=== PATIENT | female | born 1945 | race Caucasian/White ===

== ENCOUNTER 2023-11-22 06:46 | Day surgery (SDC) | payer MEDICARE ==
[2023-11-17 11:35] LABS: BASOPHILS % (AUTO) 0.3 % (0-1); EOSINOPHILS % (AUTO) 0.6 % (0-6); LYMPHOCYTES % (AUTO) 14.5 % (21-51); MEAN CORPUSCULAR HEMOGLOBIN 26.1 PG (27.0-31.0); MEAN CORPUSCULAR HGB CONC 32.5 g/dL (33.0-36.5); MEAN CORPUSCULAR VOLUME 80.2 FL (78-98); MEAN PLATELET VOLUME 8.9 FL (7.4-10.4); MONOCYTES # (AUTO) 0.5 X10'3 (0-0.9); MONOCYTES % (AUTO) 7.7 % (2-12); NEUTROPHILS # (AUTO) 5.4 X10'3 (1.8-7.7); NEUTROPHILS % (AUTO) 76.9 % (42-75); PRE OP HEMATOCRIT 30.7 % (35.0-45.0); PRE OP PLATELET COUNT 388 X10'3 (140-440); RED BLOOD COUNT 3.82 X10'6 (4.20-5.60); RED CELL DISTRIBUTION WIDTH 16.4 % (11.5-14.5)
[2023-11-17 11:41] LABS: ALBUMIN 3.4 G/DL (3.4-5.0); ALBUMIN/GLOBULIN RATIO 0.8 (1.1-1.5); ALKALINE PHOSPHATASE 128 IU/L (46-116); BLOOD UREA NITROGEN 19 MG/DL (7-18); CALCIUM 8.5 MG/DL (8.5-10.1); CHLORIDE 101 MMOL/L (99-107); CREATININE 0.95 MG/DL (0.40-0.90); PRE OP ALT 34 U/L (30-65); PRE OP ANION GAP 9 (8-16); PRE OP AST 22 U/L (10-37); PRE OP BILIRUB, TOTAL 0.2 MG/DL (0.0-1.0); PRE OP GLUCOSE 111 MG/DL (70-104); PRE OP POTASSIUM 4.1 MMOL/L (3.4-5.1); PRE OP SODIUM 134 MMOL/L (135-145); TOTAL CARBON DIOXIDE 24.4 MMOL/L (24-32); TOTAL PROTEIN 7.5 G/DL (6.4-8.2); eGFR 57 ML/MIN
[~2023-11-22] VITALS: Ht 167.6 cm; Wt 61.9 kg
[2023-11-22] VITALS (7 sets, daily range): BP systolic 107–142; BP diastolic 57–73; PULSE 61–74; RESP 14–16; TEMP 98.4; O2SAT 95–99
[2023-11-22] MEDS: cefazolin 2gm/D5W 100mL 100 ML IV ONE (05:30)
[~2023-11-22 06:46] MED LIST: ASPI81TA52 PO; FOLI1TAB27 PO; LISI1TAB51 PO; OSC500T PO; ROSU5TAB12 PO; URSO300C2 PO; URSO500T10 PO
[2023-11-22] MEDS ORDERED: BUPIVAcaine/PF 2.5mg/ml (0.25%) 10ml vial ONE (07:26)
[2023-11-22] MEDS ORDERED: fentaNYL/PF 50MCG/1 ML 2ML syringe IV PRN ×2 (08:25)
[2023-11-22] MEDS ORDERED: ringers solution, lacted 1,000 ML IV SCH (08:25)
[2023-11-22] MEDS ORDERED: meperidine/PF 25mg/ml syringe IV PRN (08:25)
[2023-11-22] MEDS ORDERED: hydrALAZINE 20mg/ml inj. IV PRN (08:25)
[2023-11-22] MEDS ORDERED: ondansetron/PF 4mg/2ml inj IV PRN (08:25)
[2023-11-22] MEDS ORDERED: acetaminophen 1,000mg/100ml IV 100 ML IV ONE (08:25)
[2023-11-22] MEDS ORDERED: labetalol 20mg/4ml (5mg/ml) syringe IV PRN (08:25)
[2023-11-22] MEDS ORDERED: proCHLORperazine 10 MG/2 ml inj IV PRN (08:25)
[2023-11-22] MEDS: famotidine 20mg tablet PO ONE (08:37)
[2023-11-22] MEDS: ringers solution, lacted 1,000 ML IV SCH (08:38)
[2023-11-22] MEDS ORDERED: fentaNYL/PF 50MCG/1 ML 2ML syringe ONE (09:53)
[2023-11-22] MEDS ORDERED: LIDOcaine 2% (20mg/ml) 5ml vial ONE ×2 (09:59)
[2023-11-22] MEDS ORDERED: midazolam 1 mg/ML 2ml injection ONE (10:04)
[2023-11-22] MEDS ORDERED: propofol inj 20 ML IV ONE (10:05)
[2023-11-22] MEDS: BUPIVAcaine/PF 5 MG/ML 10ML VIAL IJ ONE (10:12)
== END 2023-11-22 11:20 | disposition home or self-care (01) ==
LOC: PAS 06:46
PROVIDERS: ATTEND Orthopaedic Surgery Hand Surgery
DX: D21.11 Benign neoplasm of connective and other soft tissue of right upper limb, including shoulder (principal); I10 Essential (primary) hypertension; E78.5 Hyperlipidemia, unspecified; I20.9 Angina pectoris, unspecified; I25.2 Old myocardial infarction; Z87.891 Personal history of nicotine dependence; Z79.82 Long term (current) use of aspirin; Z79.899 Other long term (current) drug therapy; Z98.890 Other specified postprocedural states
CPT/HCPCS: 26116; 36415; 80053; 82948; 85025; 93005; J0665; J0690; J2250; J2704; J3010; J3490; J7030; J7120; Z7506; Z7512; A4215; A4618; A6449; A7000

== ENCOUNTER 2025-06-21 10:10 | Emergency (ER) | payer MEDICARE ==
[~2025-06-21] VITALS: Ht 165.1 cm; Wt 58.9 kg
[~2025-06-21 10:10] MED LIST changes: -ROSU5TAB12 PO; +ROSU5TAB51 PO; -URSO500T10 PO; +URSO500T7 PO
[2025-06-21 10:21] VITALS: BP 128/70; PULSE 124; RESP 14; O2SAT 96
--- NOTE | 2025-06-21 10:53 | RADIOLOGY REPORT ---
PROCEDURE: RIGHT WRIST, COMPLETE (3VW MIN) 06/21/2025 10:33 AM TECHNIQUE: RIGHT WRIST, COMPLETE (3VW MIN) INDICATION: R ARM PAIN. COMPARISON: None available. FINDINGS: No acute fracture or dislocation. Mild arthritis of the triscaphe joint. [id number] arthritis of the first carpometacarpal joint. Osseous structures are demineralized. Soft tissues unremarkable. IMPRESSION: No acute osseous abnormality.
--- NOTE | 2025-06-21 10:56 | RADIOLOGY REPORT ---
EXAM: DI SHOULDER, COMPLETE (MIN 2 VWS) HISTORY: R ARM PAIN COMPARISON: None available TECHNIQUE:: 3 views of the right shoulder FINDINGS: No acute fracture or dislocation. No suspicious lytic or osseous lesion is identified. Mild arthritis of the acromioclavicular joint. Mild arthritis of the glenohumeral joint. Markedly narrowed acromiohumeral interval, which is suggestive of chronic rotator cuff pathology. No calcifications about the humeral head to suggest rotator cuff calcific tendinopathy. The overlying soft tissues are unremarkable. IMPRESSION: 1. No acute fracture or dislocation. 2. Chronic degenerative changes as described.
--- NOTE | 2025-06-21 12:03 | Physician Documentation ---
History of Present Illness ~ Chief Complaint: Wrist pain Stated Complaint: ARM PAIN Time Seen by MD: 10:31 Primary Medical Doctor: Laura sylvester NP HPI Patient is a very pleasant 79-year-old female that presents to the emergency department for evaluation of wrist and shoulder pain sustained approximately 1 month ago after a fall in a new environment. Patient reports he was not dizzy she was not lightheaded and was a mechanical ground level fall due to being on familiar with the inside of the home she was visiting. Patient reports since that time she has had tenderness and pain in her shoulder and her right wrist specifically. Patient reports he had carpal tunnel approximately 20 years ago and used to wear braces on that side. Patient reports her wrist is very swollen she does have good range of motion but it is tender to move the wrist. Patient denies fever chills nausea vomiting diarrhea at this time. Tetanus within 5 years: No Medication Reconciliation Allergies: Coded Allergies: No Known Allergies (Unverified , 06/21/25) Scheduled Aspirin (Aspirin EC), 1 TAB PO DAILY, (Reported) Calcium Carbonate* (Oscal*), 1 TAB PO BID, (Reported) Folic Acid* (Folic Acid*), 1 TAB PO QPM, (Reported) Lisinopril/Hydrochlorothiazide (Lisinopril-Hctz 20-12.5 mg Tab), 1 TAB PO QPM, (Reported) Rosuvastatin Calcium (Rosuvastatin Calcium), 1 TAB PO QPM, (Reported) Ursodiol (Ursodiol), 1 TAB PO QAM, (Reported) Ursodiol (Ursodiol), 1 CAP PO QPM, (Reported) Review of Systems ROS As stated above in the HPI, otherwise all systems are reviewed and negative. Physical Exam Vital Signs: Temperature: 97.9, Source: Oral, Heart Rate: 124, Respiratory Rate: 14, BP: 128/70, Pulse Oximetry: 96, Weight: 58.900 Oxygen Flow Rate: 0 Physical Exam VITALS: Reviewed and as above. GENERAL: Alert, no apparent distress. MUSCULOSKELETAL No deformities, edema noted to the right wrist tenderness with range of motion during examination, mild tenderness to the right shoulder with range of motion noted during examination. SKIN: Warm and dry, no rash NEURO: Oriented x4, No motor or sensory deficit PSYCH: Normal mood and affect, no agitation Progress Results/Orders Results/Orders Orders - MIQUEL MANUEL REIMBURSEMENT LIAISON Wrist, Complete (3vw Min) (06/21/25 ) Shoulder, Complete (Min 2 Vws) (06/21/25 ) Completed Orders - MIQUEL MANUEL [facility]IMBURSEMENT LIAISON Wrist, Complete (3vw Min) (06/21/25 ) Shoulder, Complete (Min 2 Vws) (06/21/25 ) Vital Signs 06/21/25 10:21 Temp 97.9 Pulse 124 Resp 14 B/P (MAP) 128/70 Pulse Ox 96 O2 Flow Rate 0 Medical Decision Making Additional information obtaine: other Findings MEDICAL DECISION MAKING - DISCHARGE Chief Complaint: Right wrist and shoulder pain following ground-level fall approximately one month ago. History of Present Illness: This 79-year-old female presents to the emergency department with persistent right wrist and shoulder pain sustained after a mechanical ground-level fall in an unfamiliar environment approximately one month ago. The patient denies any dizziness, lightheadedness, or syncope preceding the fall. Since the incident, she has experienced ongoing tenderness and pain in the affected shoulder and right wrist. The patient has a history of carpal tunnel syndrome from approximately 20 years ago, previously managed with wrist bracing on the affected side. She denies fever, chills, nausea, vomiting, or diarrhea. Physical Examination: The right wrist demonstrates significant swelling with tenderness to palpation and movement. Range of motion is preserved but painful. Shoulder examination reveals tenderness without obvious deformity. Diagnostic Studies: Radiographic imaging of the right shoulder and right wrist obtained in the emergency department shows no evidence of acute fracture, dislocation, or other bony abnormality. According to the [employer] Appropriateness Criteria, radiography is the appropriate initial imaging study for evaluation of chronic hand and wrist pain. The negative radiog raphs in the setting of chronic pain (greater than one month duration) and examination findings consistent with nonspecific arthritis support a clinical diagnosis without need for advanced imaging at this time. 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 Several factors support this diagnosis: Mechanism and Timeline: Ground-level fall with subsequent chronic pain persisting beyond one month meets the [employer] the [employer] of Pain definition of chronic pain (pain persisting or recurring for 3 months or longer). The mechanical nature of the fall without loss of consciousness reduces concern for other systemic etiologies. [1] Imaging Findings: Negative radiographs effectively exclude acute fracture, which is the primary concern in acute traumatic shoulder and wrist injuries. In the setting of chronic wrist pain with normal or nonspecific radiographic findings, the clinical diagnosis of arthritis is appropriate. [1-3] Patient Risk Factors: At 79 years of age, the patient is at increased risk for osteoarthritis. Her history of carpal tunnel syndrome suggests pre-existing degenerative changes in the wrist that may predispose to post-traumatic arthritis exacerbation. Physical Examination: Preserved range of motion with pain and swelling is consistent with inflammatory arthritis rather than complete structural disruption. The absence of systemic symptoms (fever, chills) makes infectious or systemic inflammatory processes less likely. Differential Considerations: While occult fracture was considered given the traumatic mechanism, the negative radiographs at one month post-injury make this unlikely. Radiographs can miss up to 30% of scaphoid fractures acutely, but at one month post-injury, fractures are typically visible on plain films. [4] Advanced imaging with MRI would be considered if there were concern for occult fracture, ligament injury, or rotator cuff pathology, but the clinical presentation and timeline favor arthritis exacerbation over these diagnoses. [2][5] Plan: The patient will be discharged with conservative management appropriate for arthritis exacerbation: Immobilization: Wrist splint in neutral position for symptom relief and support [6] Analgesia: Acetaminophen as first-line analgesic given the patient's age, with maximum daily dose of 2,000 mg given she is over 80 years old [7-8] Activity Modification: Relative rest with gradual return to activities as tolerated Follow-up: Outpatient follow-up in 1-2 weeks to reassess symptoms and functional status The patient was counseled on warning signs requiring return to the emergency department, including development of fever, worsening swelling, numbness or weakness, or inability to bear weight. She verbalized understanding of the discharge plan and agreed with conservative management. Complexity of Medical Decision Making: Moderate complexity given multiple diagnostic considerations in an elderly patient with chronic symptoms following trauma, requiring interpretation of imaging studies and consideration of age-appropriate treatment modifications. General Diff Dx:Considerations: Include: Abrasion, Contusion, Fracture, H ematoma, Laceration, Malunion, Neurovascular injury, Open fracture, Sprain, Ulcer, Other Shoulder Diff Dx:Consideration: Include: AC separation, Adhesive capsulitis, Arthritis, Bicipital tendonitis, Calcific tendonitis, Cervical disc disease, Contusion, Dislocation, Fracture-humerus, Fracture-scapula, Fracture-clavicle, GB disease, Hematoma, Impingement syndrome, Myocardial infarction, Neurovascular injury, Open fracture-humerus, Open fracture-scapula, Open fracture-clavicle, Rotator cuff injury, SC dislocatoin, Sprain, Subacromial bursitis, Other Elbow Diff Dx:Considerations: Include: Abrasion, Arthritis, Contustion, DJD, Fracture-humerus, Fracture-radial head, Fracture-radius, Fracture-ulna, Gout, Hematoma, Laceration, Neurovascular injury, Olecranon bursitis, Open fracture, Osteomyelitis, Radial head subluxation, Rheumatoid arthritis, Septic, Sprain, Ulcer, Other Wrist Diff Dx:Considerations: Include: Abrasion, Arthritis, DJD, Gout, Rheumato id, Septic, Carpal tunnel snydrome, Contusion, Dislocation, Fracture-carpal, Fracture-radius, Fracture-ulna, Ganglion, Laceration, Neurovascular injury, Open fracture, Strain, Other Hand Diff Dx:Considerations: Include: Abrasion, Arthritis, Contusion, DJD, Felon, Fracture-carpal, Fracture-metacarpal, Fracture-phalynx, Fracture-radius, Fracture-ulna, Gout, Hematoma, Herpetic michele, Laceration, Neurovascular injury, Open fracture, Paronychia, Rheumatoid arthritis, Septic, Sprain, Subun gual hematoma, Tenosynovitis, Volar plate injury, Cellulitis, Malunion, Other Finger Diff Dx:Considerations: Include: Abrasion, Cellulitis, Contusion, Dislocation, Fracture, Hematoma, Laceration, Neurovascular injury, Open fracture, Subungual hematoma, Other Departure Disposition: 01 HOME / SELF CARE / HOMELESS Impression: Primary Impression: Wrist joint pain Additional Impression: Arthritis Condition: Stable Additional Instructions: Your Diagnosis: You have arthritis (joint inflammation) in your right wrist and shoulder that got worse after your fall. What Happened: You fell about one month ago and have had pain and swelling in your right wrist and shoulder since then. Your X-rays did not show any broken bones. The pain you are feeling is from arthritis that was made worse by the fall. Pain Management: Acetaminophen (Tylenol): Take as directed on the bottle for pain. Do not take more than 2,000 mg (2 grams) total per day. [2] Ibuprofen (Advil, Motrin): You may also take ibuprofen as directed on the bottle if you can tolerate it and have no kidney problems or stomach issues. [2] Take these medications with food to protect your stomach. Using Your Wrist Brace and Sling: Wear your wrist brace to support your wrist and reduce pain. [3] Use the sling for your shoulder when you need extra comfort and support. [3] You may remove the brace and sling for bathing and gentle movement exercises. A physical therapist or occupational therapist can help make sure your brace fits properly. [3] Activity and Safety: Move carefully and avoid rushing, especially in unfamiliar places. [4] Use assistive devices (like a cane or walker) if recommended by your doctor. [1] Check your home for fall hazards: [1] Remove loose rugs and clutter from walkways Improve lighting in hallways and stairs Install grab bars in the bathroom if needed Wear sturdy, non-slip shoes at home Stay active with gentle exercises as tolerated to maintain strength and balance, but avoid activities that cause significant pain. [5] Warning Signs - Return to the Emergency Department If You Have: Severe pain that does not improve with medication Increased swelling, redness, or warmth in your wrist or shoulder Fever (temperature over 100.4F) Numbness, tingling, or weakness in your arm or hand Another fall or new injury Inability to move your wrist or shoulder Follow-Up Care: Primary care provider: Schedule an appointment within 1-2 weeks to check on your recovery. [1][6] MRI imaging: Your doctor may order an MRI to get a better look at your wrist and shoulder if your pain does not improve. Orthopedic clinic: You already have a referral to see an sterilization specialist who can discuss cortisone injections (steroid shots) to help reduce inflammation and pain in your joints. [2] Fall Prevention: Because you have fallen once, you are at higher risk of falling again. At your follow-up appointments, your doctors should: [1][4] Review all your medications to make sure none increase your fall risk [7] Check your vision and hearing [4] Evaluate your balance and walking ability [5] Discuss whether you need physical therapy to improve your strength and balance [1][5] Questions to Ask Yourself: [1] Can you get out of bed or a chair by yourself? Can you dress and bathe yourself? Can you make your own meals? Can you do your own shopping? If you answered "no" to any of these questions, tell your doctor at your follow- up visit. You may benefit from physical therapy or occupational therapy to help you stay independent. [1] Important Reminders: Take your pain medication as directed Wear your brace and sling as needed for comfort Keep your follow-up appointments Make your home safer to prevent future falls Stay as active as you safely can Referrals: NO PRIMARY CARE PROVIDER (PCP) Education Educated: Patient Educated regarding: diagnosis, treatment, need for follow up Signature Scribe Signature: A Attestation: Scribed for Miquel Manuel by CHEMA Vega . 06/21/25 12:09 MIQUEL MANUEL Jun 21, 2025 12:03
[2025-06-21 12:21] VITALS: TEMP 97.9
== END 2025-06-21 12:22 | disposition home or self-care (01) ==
LOC: ER 10:11
DX: M19.031 Primary osteoarthritis, right wrist (principal); M25.511 Pain in right shoulder; Z79.899 Other long term (current) drug therapy; Z79.82 Long term (current) use of aspirin
CPT/HCPCS: 29125; 73030; 73110; 99284; A4565; L3908